=== PATIENT | female | born 1975 | race Caucasian/White ===

== ENCOUNTER 2016-10-14 06:15 | Emergency (ER) | payer BC ==
[2016-10-14 05:55] LABS: BASOPHILS 0.1 %; BASOPHILS ABSOLUTE 0.01 10/3/uL (0.0-0.16); EOSINOPHILS 0.1 %; EOSINOPHILS ABSOLUTE 0.02 10/3/uL (0.0-0.53); HEMATOCRIT 47.2 % (36.0-48.0); HEMOGLOBIN 16.7 g/dL (12.0-16.0); IMMATURE GRANULOCYTES 0.5 %; IMMATURE GRANULOCYTES ABSOLUTE 0.07 10/3/uL (0.0-0.11); LYMPHOCYTES 19.5 %; MANUAL DIFF NO %; MEAN CORPUS HGB CONC 35.4 g/dL (32.0-36.0); MEAN CORPUSCULAR VOLUME 79.2 fL (80-100); MEAN PLATELET VOLUME 10.2 fL (9.2-13.0); MONOCYTES 3.5 %; MONOCYTES ABSOLUTE 0.48 10/3/uL (0.21-1.20); NEUTROPHILS 76.3 %; NEUTROPHILS ABSOLUTE 10.55 10/3/uL (2.02-8.40); PLATELET COUNT 271 10/3/uL (150-400); RBC DISTRIBUTION WIDTH 13.3 % (12.0-16.0); RED CELL COUNT 5.96 10/6/uL (4.0-5.6); WHITE BLOOD CELLS 13.8 10/3/uL (4.5-10.5)
[2016-10-14 06:10] LABS: A/G RATIO 0.8 (0.7-1.9); ALBUMIN 3.7 G/DL (3.5-5.0); ALKALINE PHOSPHATASE 109 U/L (45-117); BUN (BLOOD UREA NITROGEN) 19 MG/DL (6-23); CALCIUM, SERUM 9.5 MG/DL (8.5-10.4); CHLORIDE, SERUM 101 MMOL/L (96-112); CO2 (CARBON DIOXIDE) 22 MMOL/L (24-34); CREATININE 0.89 MG/DL (0.55-1.02); GFR AFRICAN AMERICAN 94 ML/MIN (>=60); GFR NON AFRICAN AMERICAN 81 ML/MIN (>=60); GLOBULIN 4.8 G/DL (2.5-4.1); GLUCOSE, SERUM 401 MG/DL (60-99); POTASSIUM, SERUM 3.9 MMOL/L (3.5-5.3); SGOT(AST) 13 U/L (5-40); SGPT(ALT) 25 U/L (5-65); SODIUM, SERUM 135 MMOL/L (135-148); TOTAL BILIRUBIN 0.5 MG/DL (0-1.2); TOTAL PROTEIN 8.5 G/DL (6.0-8.5)
[2016-10-14 06:47] LABS: ACETONE NEG
[2016-10-14] MEDS ORDERED: GLUCPH PO (07:31)
[2016-10-14] MEDS ORDERED: ADVIL PO (07:31)
[2016-10-14 07:43] LABS: WBC (NOT ORDERED) (RFLEX) 0 (0-5)
[2016-10-14 07:55] LABS: ASCORBIC ACID (UR NOT ORDER) NEG (NEG); BILIRUBIN, URINE NEGATIVE (NEG); ER URINALYSIS TAT 0 Hrs 13 Mins; KETONE, URINE 20 MG/DL (NEG); LEUKOCYTE ESTERASE(NOT OR NEG (NEG); NITRITE (URINE) NEG (NEG)
== END 2016-10-14 09:46 | disposition home or self-care (01) ==
LOC: ER 06:15
PROVIDERS: Nurse Practitioner Acute Care
DX: R10.9 Unspecified abdominal pain (principal); R73.9 Hyperglycemia, unspecified; E86.0 Dehydration; F17.210 Nicotine dependence, cigarettes, uncomplicated; Z91.038 Other insect allergy status; Z79.84 Long term (current) use of oral hypoglycemic drugs; Z79.899 Other long term (current) drug therapy
CPT/HCPCS: 74176; 80053; 81001; 82009; 82962 ×2; 83690; 85025; 96374; 96375; 99284; J1170; J2405; A9270-GY

== ENCOUNTER 2016-10-15 20:59 | Inpatient (IN) | payer BC ==
--- NOTE | ~2016-10-15 | DS ---
Discharge Summary [address] [place]. [address] NAME: TATE ORELLANA : 77 STATUS : DIS IN PAT#: [id number] AGE: 41 ADM/REG DATE : 10/15/16 MR#: [id number] REPORT SERV DATE: 10/27/16 DICTATED BY: MARIA LUZ OZUNA DATE: 10/26/16 REPORT STATUS : Draft TRANSCRIBED BY: MODL DATE: 10/26/16 ADMISSION DATE: 10/15/2016 DISCHARGE DATE: 10/26/2016 DISCHARGE DIAGNOSES: 1. Partial small bowel obstruction, improving. 2. Nausea and vomiting due to partial small bowel obstruction. 3. Abdominal pain due to partial small bowel obstruction. 4. Diabetes mellitus type 2, stable. 5. Hypertension, stable. 6. Urinary tract infection, ruled out. IMAGIN. CT abdomen and pelvis, 10/15/2016, impression: Numerous fluid and dilated small bowel segments measuring up to 3.8 cm in diameter with scattered air-filled levels. Transition zone to 1 cm caliber distal ilium although transition zone is not discretely identified. Most consistent with a moderate severity partial small bowel obstruction. 2. KUB 10/16/2016, impression: Nasogastric tube passes into the stomach but the tip is not definitely seen. Probably in the antrum and dilated small bowel consistent with history of partial small bowel obstruction. 3. Small-bowel follow-through 10/17/2016 impression: Findings again compatible with small- bowel obstruction with multiple dilated small bowel loops throughout the abdomen measuring up to 4.8 cm in diameter. 4. KUB 10/19/2016, impression: Findings compatible with small-bowel obstruction. 5. KUB on 10/21/2016, impression: Mild dilation of small bowel, similar compared with 10/17/2016. 6. KUB 10/23/2016, impression: Zfrz-hp-cxwltyet distention of the small bowel throughout the abdomen with retained contrast in the colon. Findings appear similar to 10/21/2016. 7. KUB 10/24/2016 increasing number of distended gas filled loops of small intestines. There is still gas in the colon. Gas pattern is worse compared to prior study. 8. KUB 10/25/2016, impression: Persistent proximal small bowel distention with decrease in volume of gas in the abdomen. 9. Abdominal x-ray on 10/26/2016, impression: Persistent ileus with less prominent small bowel distention. CONSULTATION: GI, Stephane Abad on 10/22/2016. COURSE AT HOSPITAL STAY: Please refer to history and physical dictated by Dr. Harvey on 10/16/2016 as well as interim note. This patient is a 41-year-old female, who presented to [facility]'s Emergency Room with complaints of abdominal pain along with nausea and vomiting. The patient's imaging was obtained, and the patient was admitted to the hospital. 1. Partial small bowel obstruction. As noted above per imaging, a moderate to severe small-bowel obstruction was noted. The patient was initially n.p.o. NG tube was Discharge Summary [address] [address] NAME: TATE ORELLANA : 77 STATUS : DIS IN PAT#: [id number] AGE: 41 ADM/REG DATE : 10/15/16 MR#: [id number] REPORT SERV DATE: 10/27/16 DICTATED BY: MARIA LUZ OZUNA DATE: 10/26/16 REPORT STATUS : Draft TRANSCRIBED BY: NIKHIL DATE: 10/26/16 placed. The patient was provided pain medication due to abdominal pain/cramping. Bowel sounds were noted and decreased. The patient continued to have nausea and vomiting. NG tube was eventually discontinued. The patient was placed on a clear liquid diet, which she tolerated. Bowel regimen was initiated, MiraLAX and Dulcolax suppositories. The patient has been able to have bowel elimination. GI was consulted to assess the patient. Per their recommendation, clear liquid diet was continued, increased ambulation, also Reglan was added to the patient's regimen. The patient has been able to tolerate a regular diet. No nausea and vomiting in over 48 hours. The patient has been able to ambulate without difficulty. Continued to have loose watery bowel movements but imaging does show that resolution of obstruction at this time. The patient has been advised to continue stool softeners and will follow up with a primary care doctor in 24 hours. 2. Nausea and vomiting due to partial small bowel obstruction. The patient has had complaints of nausea and vomiting upon admission, and this has resolved. The patient has had no nausea vomiting in over 72 hours. The patient was placed on a clear liquid diet but has been eating regular food from home and has been able to tolerate it. 3. Abdominal pain due to partial small bowel obstruction. The patient had initially abdominal pain and tenderness. This has resolved in the past 72 hours. No pain prescription will be provided upon discharge. 4. Diabetes mellitus type 2. The patient's blood sugar has remained stable. At this time, it is 142. She will continue home medication upon discharge. 5. Hypertension. The patient's blood pressure was noted up on admission. Lisinopril has been added, prescription for 30 days have been provided and again patient will follow up with primary care physician in 24 hours. 6. Urinary tract infection ruled out. Initial labs indicated a possible urinary tract infection. This has been ruled out. Antibiotics were stopped. DISCHARGE MEDICATIONS: 1. Dulcolax 10 mg p.o. twice daily. 2. Lisinopril 10 mg one p.o. daily. 3. Reglan 10 mg one p.o. with meals and at bedtime. 4. MiraLAX powder one pack p.o. twice daily. 5. Metformin 500 mg one p.o. twice daily. 6. Advil 200 mg, 1000 mg p.o. twice daily. 7. Hydrocodone 7.5/325 one p.o. every six hours. The patient is being discharged home in hemodynamically stable condition. Primary care physician has been arranged per machine adjuster leader case trim for patient. A prescription for lisinopril has been provided for the patient for 30 days. The patient did state understanding and agreed with the treatment plan. Discharge took greater than 30 minutes. DICTATED BY: MICHAEL Burns/NIKHIL Discharge Summary [address] [address] NAME: TATE ORELLANA : 77 STATUS : DIS IN [facility]#: [id number] AGE: 41 ADM/REG DATE : 10/15/16 MR#: [id number] REPORT SERV DATE: 10/27/16 DICTATED BY: MARIA LUZ OZUNA DATE: 10/26/16 REPORT STATUS : Draft TRANSCRIBED BY: NIKHIL DATE: 10/26/16 Maria Luz Ozuna NP / [id number] CC: Bebeto Hsu M.D.
--- NOTE | ~2016-10-15 | CN ---
Consultation Report [facility] [address] [place]. [address] NAME: TATE ORELLANA : 77 STATUS : ADM IN PAT#: [id number] AGE: 41 ADM/REG DATE : 10/15/16 MR#: [id number] REPORT SERV DATE: 10/22/16 DICTATED BY: JANES CRUZ DATE: 10/22/16 REPORT STATUS : Draft TRANSCRIBED BY: MODL DATE: 10/22/16 GI CONSULTATION DATE OF CONSULTATION: 10/22/2016 REASON FOR CONSULTATION: Evaluation and management of partial small bowel obstruction. HISTORY OF PRESENT ILLNESS: Ms. Orellana is a 41-year-old female patient, who was admitted on 10/15/2016 secondary to a chief complaint of abdominal pain, nausea, and vomiting. She states that she had a symptom onset of abdominal pain two days prior to her admission. She was actually seen in the [facility] Emergency Room on 10/14/2016 and was treated for urinary tract infection. CT did show evidence of dilated small bowel at that point in time. She states that she was told that it was secondary to her uncontrolled diabetes from her urinary tract infection and was sent home. Her abdominal pain increased resulting in nausea, vomiting, and distention, which prompted her to come back to the [facility] Emergency Room. She underwent another CAT scan on 10/15/2016, this one was with contrast, which showed numerous fluid dilated small bowel segments measuring up to 3.8 cm in diameter with scattered air-fluid levels, transition zone was normal with 1 cm caliber distal ileum, although transition zone was not discretely identified, most consistent with moderate severity partial small-bowel obstruction. She has since admission undergone multiple KUB. She had a small bowel followthrough on 10/17/2016 showing a partial small bowel obstruction with dilated small bowel loops throughout the abdomen measuring 4.8 cm in diameter with delayed transit of Gastrografin to the colon with the first Gastrografin has been seen in the ascending colon at 13 hours. KUB dated 10/21 showed mild dilation of small bowel similar compared with 10/17/2016 with residual contrast being present within the colon. The patient states that her abdominal pain had not improved at all. She states she was able to eat a few bites of a chicken nugget today, which has stayed down with an increase in her abdominal cramping. She tells me she has not passed flatus. She has not passed any stool in multiple days despite Reglan and despite Dulcolax suppositories. She has never seen a GI physician nor had an EGD or colonoscopy. She states that she has had two surgeries for lysis of adhesions. She has had appendix surgery and she has had surgery for an ovarian cyst. PAST MEDICAL HISTORY: Positive for ovarian cyst, type 2 diabetes, obesity, and tobacco abuse, asthma, and bone cancer 12 years ago. PAST SURGICAL HISTORY: Appendectomy, ovarian cyst surgery, and lysis of adhesions. FAMILY HISTORY: Noncontributory from a GI standpoint. ALLERGIES: LISTED TO WASP VENOM AND ZOFRAN HOME MEDICATIONS: Advil and Glucophage. Consultation Report [address] [place]. [address] NAME: TATE ORELLANA : 77 STATUS : ADM IN [facility]#: [id number] AGE: 41 ADM/REG DATE : 10/15/16 MR#: [id number] REPORT SERV DATE: 10/22/16 DICTATED BY: JANES CRUZ DATE: 10/22/16 REPORT STATUS : Draft TRANSCRIBED BY: NIKHIL DATE: 10/22/16 REVIEW OF SYSTEMS: A 10-point review of systems has been obtained with pertinent positives being addressed in the history of present illness. PHYSICAL EXAMINATION: VITAL SIGNS: Temperature is 98.4, pulse 111, respirations 17, and blood pressure 129/77. NEUROLOGIC: Reveals an alert, female, resting in bed. No focal deficits. GENERAL: Cooperative, in no apparent distress. She is awake, alert, and oriented x3. HEAD, EARS, EYES, NOSE, AND THROAT: Anicteric. Pupils are equal, round, and reactive to light and accommodation. Normocephalic and atraumatic. NECK: No JVD. No palpable nodes. LUNGS: Decreased and coarse with normal respiratory effort exhibited. CARDIOVASCULAR SYSTEM: Tachycardic, but regular rate and rhythm. ABDOMEN: Distended with tympanic bowel sounds throughout, mildly tender to palpation diffusely. EXTREMITIES: No edema. Normal distal pulses. SKIN: Warm, dry, and intact. PERTINENT LABORATORY DATA: Sodium 139, potassium 3.2, BUN is 14, creatinine 0.56. White count 9.1, hemoglobin 13.4, hematocrit 39.7, platelet count 176. Albumin 3.3. Normal liver function testing. ASSESSMENT/PLAN: 1. Partial small bowel obstruction. 2. Abdominal pain, nausea, and vomiting secondary to #1. 3. Type 2 diabetes, poorly controlled. 4. Urinary tract infection. 5. History of tobacco abuse. 6. History of hypertension. PLAN: 1. We will decrease her diet to clear liquid diet. Insert NG tube if uncontrolled nausea and vomiting. 2. Star. 3. Discontinue her Reglan. 4. Start IV azithromycin. 5. Limit narcotics. 6. Imaging of the abdomen. 7. Question of stenosis. Surgical consultation at some point in time. We will follow. SERGIO/NIKHIL [facility] Consultation Report [address] [place]. [address] NAME: TATE ORELLANA : 77 STATUS : ADM IN PAT#: [id number] AGE: 41 ADM/REG DATE : 10/15/16 MR#: [id number] REPORT SERV DATE: 10/22/16 DICTATED BY: JANES CRUZ DATE: 10/22/16 REPORT STATUS : Draft TRANSCRIBED BY: NIKHIL DATE: 10/22/16 XUAN Abad / [id number] CC: Bebeto Hsu M.D. NO JIGAR
--- NOTE | ~2016-10-15 | DS ---
Discharge Summary [facility] [address] [place]. [address] NAME: TATE ORELLANA : 77 STATUS : ADM IN [facility]#: [id number] AGE: 41 ADM/REG DATE : 10/15/16 MR#: [id number] REPORT SERV DATE: 10/20/16 DICTATED BY: MARIA LUZ OZUNA DATE: 10/20/16 REPORT STATUS : Draft TRANSCRIBED BY: MODL DATE: 10/20/16 ADMISSION DATE: 10/15/2016 DISCHARGE DATE: 10/20/2016 DISCHARGE DIAGNOSES: 1. Ppvbriyf-xc-zxepsy partial small bowel obstruction, improving. 2. Abdominal pain due to oqkwbhot-zc-gzxeqy small bowel obstruction. 3. Nausea and vomiting, resolved. 4. Diabetes mellitus type 2. Blood sugar 137, stable. 5. Urinary tract infection ruled out. 6. Hypertension, stable. IMAGIN. CT abdomen and pelvis on 10/15/2016, impression numerous fluid and dilated small bowel segments measuring up to 3.8 cm diameter with scattered air-fluid levels. Transition zone to normal 1 cm caliber distal ileum, although transition zone is not discretely identified. 2. KUB on 10/16/2016, impression nasogastric tube passes into the stomach but the tip is not definitely seen, probable in the antrum. Dilated small bowel consistent with history of partial small bowel obstruction. 3. Small bowel follow through 10/17/2016, impression findings again compatible with partial small bowel obstruction with multiple dilated small bowel loops throughout the abdomen measuring up to 4.8 cm in diameter. 4. KUB on 10/19/2016, impression findings compatible with small bowel obstruction. LABORATORY DATA: WBC 7.8, hemoglobin 13.4, hematocrit 40.4, platelet count 170. Sodium is 139, potassium is 3.1, chloride 107, CO2 is 26, BUN is 12, creatinine 0.48, glucose is 124, calcium is 8.4, magnesium 1.8, and phosphorus is 3.3. COURSE AT HOSPITAL STAY: Please refer to history and physical dictated by Dr. Harvey on 10/15/2016, for complete admission details as well as interim note by Fredi Gibson NP. This patient is a 41-year-old female, who presented to [facility] emergency room with complaints of abdominal pain. Imaging was obtained, which was noted above. The patient was admitted for partial small bowel obstruction. The patient was admitted to the hospital. Initially, n.p.o. NG tube was placed to low intermittent suction. The patient was able to have a bowel movement on 10/18/2016 and 10/19/2016, and NG tube was pulled and the patient has been able to tolerate a regular diet. The patient is being continued on Reglan and this will be continued for additional 14 days. The patient will follow up with her primary care at that time. Initially upon admission, the patient may have a urinary tract infection. Antibiotics were initiated. This was discontinued. UA was ruled out. The patient's blood sugar and hypertension have remained stable. The patient does deny nausea and vomiting at this time. She does have complaints of occasional abdominal pain. She will be provided a prescription for hydrocodone upon Discharge Summary [address] [address] NAME: TATE ORELLANA : 77 STATUS : ADM IN [facility]#: [id number] AGE: 41 ADM/REG DATE : 10/15/16 MR#: [id number] REPORT SERV DATE: 10/20/16 DICTATED BY: MARIA LUZ OZUNA DATE: 10/20/16 REPORT STATUS : Draft TRANSCRIBED BY: NIKHIL DATE: 10/20/16 discharge. DISCHARGE MEDICATIONS: 1. Glucophage 500 mg one p.o. twice daily. 2. Ibuprofen 200 mg, 1000 mg p.o. twice a day p.r.n. for pain. 3. Hydrocodone 7.5/325 one p.o. every six hours p.r.n. for pain. 4. Reglan 10 mg one with meals and at bedtime. The patient is being discharged home in hemodynamically stable condition. Will follow up with her primary care in five to seven days. The patient is in agreement with the treatment plan. This discharge took less than 30 minutes. DICTATED BY: MICHAEL Burns/NIKHIL Maria Luz Ozuna NP / [id number] CC: Bebeto Hsu M.D.
--- NOTE | ~2016-10-15 | IDS ---
Interim Discharge Summary [facility] [address] [place]. [address] NAME: TATE ORELLANA : 77 STATUS : ADM IN [facility]#: [id number] AGE: 41 ADM/REG DATE : 10/15/16 MR#: [id number] REPORT SERV DATE: 10/19/16 DICTATED BY: DATE: REPORT STATUS : Draft TRANSCRIBED BY: MODL DATE: 10/19/16 ADMISSION DATE: 10/15/2016 DISCHARGE DATE: DISCHARGE DIAGNOSES: 1. Moderate to severe partial small bowel obstruction. 2. Abdominal pain due to #1. 3. Nausea and vomiting. 4. Diabetes mellitus type 2. 5. Urinary tract infection. 6. Hypertension. CONSULTATIONS: None. IMAGING: Includes CT of the abdomen and pelvis with contrast which demonstrated moderate severity small bowel obstruction, also a stable moderate to large 3.9 x 5.2 cm left ovarian cyst. Gastrografin small bowel follow-through showed findings compatible with partial small bowel obstruction. There was delayed transit of Gastrografin to the colon. Also multiple KUBs, the last being 10/18/2016, which demonstrated findings compatible with a partial small bowel obstruction. For full H and P, please refer to Dr. López Harvey's dictation on 10/15/2016. HOSPITAL COURSE: The patient was admitted with IV pain control with Dilaudid and nausea control with Phenergan and Compazine. She is allergic to Zofran. She subsequently had an NG tube placed to low intermittent suction. After the Gastrografin small-bowel follow- through, the patient did have a moderate size bowel movement, this was on 10/17/2016. I repeated her KUB on 10/18/2016, which as mentioned above still demonstrated partial small bowel obstruction; however, her symptoms had improved. She was still complaining of some nausea and some pain; however, her abdomen was soft. She had some decreased bowel sounds but they were present and she still was having some nausea without vomiting. I discontinued her NG tube and advanced her diet. I placed the patient on MiraLAX b.i.d. as well as Dulcolax suppositories b.i.d. in hopes of getting the remaining partial small bowel obstruction removed. If this is successful she should be able to be discharged in 24-48 hours. She does have diabetes mellitus type 2. I kept her on a sliding scale. She normally is on metformin at home which I added back today. She also had a urinary tract infection upon admission, she was placed on Rocephin IV which I continued, she is currently on day 4 now. She also has a history of hypertension and she has been hypertensive while she is here in the hospital. Today I added back her home lisinopril and also I added hydralazine p.r.n. CLR/MODL [facility] [facility] Interim Discharge Summary [address] [address] NAME: TATE ORELLANA : 77 STATUS : ADM IN PAT#: [id number] AGE: 41 ADM/REG DATE : 10/15/16 MR#: [id number] REPORT SERV DATE: 10/19/16 DICTATED BY: DATE: REPORT STATUS : Draft TRANSCRIBED BY: MODL DATE: 10/19/16 Dylan Gibson NP / [id number] CC: MD Bebeto Gonzalez M.D. Hany A. Naggar, MD
--- NOTE | ~2016-10-15 | HP ---
History And Physical [facility] [address] [place]. [address] NAME: TATE ORELLANA : 77 STATUS : ADM Ciera PAT#: [id number] AGE: 41 ADM/REG DATE : 10/15/16 MR#: [id number] REPORT SERV DATE: 10/16/16 DICTATED BY: LÓPEZ KING DATE: 10/16/16 REPORT STATUS : Draft TRANSCRIBED BY: MODL DATE: 10/16/16 DATE OF ADMISSION: 10/15/2016 CHIEF COMPLAINT: Severe abdominal pain, nausea, and vomiting. HISTORY OF PRESENT ILLNESS: This is a 41-year-old female with a history of diabetes mellitus, who presents to the emergency room at [facility] with the above mentioned complaint. History is obtained from the patient, and reviewing data available on the [employer] system. According to the patient, she had been in usual state of health until about four to five days ago when she started having severe lower abdominal pain which was cramping in nature. This was soon followed by nausea and vomiting, and she was unable to pass any stools. She has had one such episode several years ago according to her when she was told her bowels had just come to sleep. In the last 24 hours or so, she started having intractable nausea with vomiting, and finally decided to come to the emergency room because the pain was unbearable. In the emergency room, CT scan of the abdomen and pelvis showed moderate severity, partial small bowel obstruction, and initial workup revealed hyperglycemia from her diabetes. She also appeared to have urinary tract infection. Hospitalist Service is asked to admit her for further evaluation and treatment. At the time of my evaluation, she denied any chest pain, palpitations, or orthopnea. She had no cough, hemoptysis, night sweats, or weight loss. She has not had any falls or loss of consciousness. No recent fevers or chills. She did have nausea with vomiting without any diarrhea. In fact, she has not had any bowel movement. No history of hematemesis, hematochezia, or hematuria. No other history of recent travel or exposures other than those mentioned above. PAST MEDICAL HISTORY: Significant for history of diabetes mellitus, which is poorly controlled. SOCIAL HISTORY: She has about 30- to 53-ddfy-bhmi year history of smoking, continues to do so. Denies alcohol use or recreational drug use. 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 FAMILY HISTORY: Noncontributory. MEDICATIONS: Medications at home were reviewed by me in the chart today and reordered by me. REVIEW OF SYSTEMS: As in history of present illness. All other systems were reviewed in detail and are quite unremarkable. PHYSICAL EXAMINATION: GENERAL: This is a pleasant 41-year old, not in any acute distress. She is alert, awake, oriented to time, place, and person. History And Physical [address] [id number] NAME: TATE ORELLANA : 77 STATUS : ADM Ciera PAT#: [id number] AGE: 41 ADM/REG DATE : 10/15/16 MR#: [id number] REPORT SERV DATE: 10/16/16 DICTATED BY: LÓPEZ KING DATE: 10/16/16 REPORT STATUS : Draft TRANSCRIBED BY: NIKHIL DATE: 10/16/16 HEENT: Her head is atraumatic, normocephalic. Pupils are equal, reacting to light and accommodating. External ocular muscles are intact. Membranes are moist and pink. Sclerae are nonicteric. NECK: Supple with no jugular venous distention, lymphadenopathy, or thyromegaly. LUNGS: Clear to auscultation with no wheezes, rubs, or crackles. HEART: Heart sounds were regular with no murmurs, rubs, or gallops. ABDOMEN: Soft. There is tenderness to palpation in the entire lower abdomen. There is no guarding or rigidity. There is no rebound tenderness. Bowel sounds are present. EXTREMITIES: Showed no cyanosis, clubbing, or edema. NEUROLOGIC: Grossly intact. No focal sensory or motor deficits. Higher functions appeared intact. Gait was not examined. VITAL SIGNS: Her vital signs today showed a temperature of 97.5, pulse 90, respirations 24 a minute, blood pressure was 146/94, oxygen saturations were 98%, breathing 2 L of oxygen via nasal cannula. LABORATORY DATA: Reviewed on the [employer] system showed a normal CMP with a blood glucose of 312, lipase was 89 today. Alkaline phosphatase, ALT, and AST were within normal limits. CBC showed a normal white blood cell count of 7700, hemoglobin was 16.3 with a hematocrit of 46.3, and platelet count was 225,000. Urinalysis showed large blood, leukocyte esterase was negative. Nitrite was negative with 32 RBCs and 12 WBCs. There were rare bacteria. CT scan of the abdomen and pelvis done in the emergency room was reviewed and interpreted by me. Official radiology report was also reviewed. There is moderate severity partial small bowel obstruction. Please see report for the details. IMPRESSION: 1. Abdominal pain. 2. Partial small bowel obstruction. 3. Intractable nausea and vomiting. 4. Diabetes mellitus with hyperglycemia. 5. Urinary tract infection. PLAN: We will admit Mrs. Orellana to the Hospitalist Service with defensive monitoring for a 24- hour observation. We will keep her n.p.o. for now. Start her on Zofran and Phenergan on an as-needed basis for symptoms of nausea and vomiting. We will also establish pain control at this time, start her on IV fluids for volume resuscitation. We will go ahead and consult Gastroenterology Service to see her in the morning as well. We will start her on Reglan intravenously as well. For her hyperglycemia, we will start her on NovoLog insulin per sliding scale on a four-hourly basis because she will be n.p.o. We will also bolus her with IV fluids and continue maintenance therapy as well. We will check cultures, start her on empiric IV antibiotics for urinary tract infection, and also place her on unfractionated heparin for DVT prophylaxis while here. Her gastroparesis is probably secondary to her poorly controlled diabetes mellitus. I have discussed this with the patient, and I encouraged her to control her diabetes more aggressively. She and her boyfriend who is at bedside, have agreed to do so. History And Physical [address] [address] NAME: TATE ORELLANA : 77 STATUS : ADM Ciera PAT#: [id number] AGE: 41 ADM/REG DATE : 10/15/16 MR#: [id number] REPORT SERV DATE: 10/16/16 DICTATED BY: LÓPEZ KING DATE: 10/16/16 REPORT STATUS : Draft TRANSCRIBED BY: NIKHIL DATE: 10/16/16 Hospitalist Service will be following her during her stay here. MR/NIKHIL López King M.D. / [id number] CC: Vasile Nails MD
[~2016-10-15 20:59] MED LIST: ADVIL PO; GLUCPH PO
[2016-10-15 22:43] LABS: BASOPHILS 0.1 %; BASOPHILS ABSOLUTE 0.01 10/3/uL (0.0-0.16); EOSINOPHILS 0.4 %; EOSINOPHILS ABSOLUTE 0.03 10/3/uL (0.0-0.53); HEMATOCRIT 46.3 % (36.0-48.0); HEMOGLOBIN 16.3 g/dL (12.0-16.0); IMMATURE GRANULOCYTES 0.3 %; IMMATURE GRANULOCYTES ABSOLUTE 0.02 10/3/uL (0.0-0.11); LYMPHOCYTES 34.4 %; LYMPHOCYTES ABSOLUTE 2.65 10/3/uL (0.67-4.30); MEAN CORPUS HGB CONC 35.2 g/dL (32.0-36.0); MEAN CORPUSCULAR HEMOGLOB 28.3 pg (26.0-34.0); MEAN CORPUSCULAR VOLUME 80.4 fL (80-100); MEAN PLATELET VOLUME 10.4 fL (9.2-13.0); NEUTROPHILS 51.8 %; PLATELET COUNT 225 10/3/uL (150-400); RBC DISTRIBUTION WIDTH 13.6 % (12.0-16.0); RED CELL COUNT 5.76 10/6/uL (4.0-5.6)
[2016-10-15 22:45] LABS: ER CBC TAT 0 Hrs 07 Mins; MANUAL DIFF NO %; WHITE BLOOD CELLS 7.7 10/3/uL (4.5-10.5)
[2016-10-15 22:55] LABS: ASCORBIC ACID (UR NOT ORDER) NEG (NEG); BILIRUBIN, URINE NEGATIVE (NEG); KETONE, URINE 20 MG/DL (NEG); LEUKOCYTE ESTERASE(NOT OR NEG (NEG); NITRITE (URINE) NEG (NEG); WBC (NOT ORDERED) (RFLEX) 12 (0-5)
[2016-10-15 23:00] LABS: A/G RATIO 0.7 (0.7-1.9); ALBUMIN 3.3 G/DL (3.5-5.0); ALKALINE PHOSPHATASE 78 U/L (45-117); BUN (BLOOD UREA NITROGEN) 27 MG/DL (6-23); CHLORIDE, SERUM 101 MMOL/L (96-112); CO2 (CARBON DIOXIDE) 28 MMOL/L (24-34); CREATININE 0.85 MG/DL (0.55-1.02); GFR AFRICAN AMERICAN 99 ML/MIN (>=60); GFR NON AFRICAN AMERICAN 86 ML/MIN (>=60); GLOBULIN 4.8 G/DL (2.5-4.1); GLUCOSE, SERUM 312 MG/DL (60-99); POTASSIUM, SERUM 3.8 MMOL/L (3.5-5.3); SGOT(AST) 10 U/L (5-40); SGPT(ALT) 18 U/L (5-65); SODIUM, SERUM 138 MMOL/L (135-148); TOTAL BILIRUBIN 0.5 MG/DL (0-1.2); TOTAL PROTEIN 8.1 G/DL (6.0-8.5)
[2016-10-15 23:40] LABS: ACETONE NEG
[2016-10-16 07:13] LABS: BASOPHILS 0.1 %; BASOPHILS ABSOLUTE 0.01 10/3/uL (0.0-0.16); EOSINOPHILS ABSOLUTE 0.08 10/3/uL (0.0-0.53); HEMOGLOBIN 14.8 g/dL (12.0-16.0); IMMATURE GRANULOCYTES 0.1 %; IMMATURE GRANULOCYTES ABSOLUTE 0.01 10/3/uL (0.0-0.11); LYMPHOCYTES 41.3 %; LYMPHOCYTES ABSOLUTE 3.21 10/3/uL (0.67-4.30); MANUAL DIFF NO %; MEAN CORPUS HGB CONC 33.6 g/dL (32.0-36.0); MEAN CORPUSCULAR HEMOGLOB 27.2 pg (26.0-34.0); MEAN CORPUSCULAR VOLUME 80.7 fL (80-100); MEAN PLATELET VOLUME 10.4 fL (9.2-13.0); MONOCYTES 13.1 %; MONOCYTES ABSOLUTE 1.02 10/3/uL (0.21-1.20); NEUTROPHILS 44.4 %; NEUTROPHILS ABSOLUTE 3.45 10/3/uL (2.02-8.40); PLATELET COUNT 212 10/3/uL (150-400); RBC DISTRIBUTION WIDTH 13.8 % (12.0-16.0); RED CELL COUNT 5.45 10/6/uL (4.0-5.6); WHITE BLOOD CELLS 7.8 10/3/uL (4.5-10.5)
[2016-10-16 07:26] LABS: CALCIUM, SERUM 8.4 MG/DL (8.5-10.4); CHLORIDE, SERUM 100 MMOL/L (96-112); GLUCOSE, SERUM 265 MG/DL (60-99); POTASSIUM, SERUM 3.5 MMOL/L (3.5-5.3); SODIUM, SERUM 138 MMOL/L (135-148)
[2016-10-16 07:27] LABS: BUN (BLOOD UREA NITROGEN) 34 MG/DL (6-23)
[2016-10-16 07:29] LABS: CO2 (CARBON DIOXIDE) 29 MMOL/L (24-34); CREATININE 0.75 MG/DL (0.55-1.02); GFR AFRICAN AMERICAN 116 ML/MIN (>=60); GFR NON AFRICAN AMERICAN 100 ML/MIN (>=60); PHOSPHORUS, SERUM 4.3 MG/DL (2.5-4.5)
[2016-10-17 05:37] LABS: BASOPHILS 0.3 %; BASOPHILS ABSOLUTE 0.02 10/3/uL (0.0-0.16); EOSINOPHILS 1.8 %; EOSINOPHILS ABSOLUTE 0.12 10/3/uL (0.0-0.53); HEMATOCRIT 42.5 % (36.0-48.0); IMMATURE GRANULOCYTES 0.2 %; IMMATURE GRANULOCYTES ABSOLUTE 0.01 10/3/uL (0.0-0.11); LYMPHOCYTES 52.7 %; LYMPHOCYTES ABSOLUTE 3.47 10/3/uL (0.67-4.30); MEAN CORPUS HGB CONC 32.9 g/dL (32.0-36.0); MEAN PLATELET VOLUME 10.3 fL (9.2-13.0); MONOCYTES 10.2 %; MONOCYTES ABSOLUTE 0.67 10/3/uL (0.21-1.20); NEUTROPHILS 34.8 %; PLATELET COUNT 201 10/3/uL (150-400); RBC DISTRIBUTION WIDTH 13.7 % (12.0-16.0); RED CELL COUNT 5.18 10/6/uL (4.0-5.6); WHITE BLOOD CELLS 6.6 10/3/uL (4.5-10.5)
[2016-10-17 05:39] LABS: MANUAL DIFF NO %
[2016-10-17 05:53] LABS: CHLORIDE, SERUM 108 MMOL/L (96-112); CO2 (CARBON DIOXIDE) 26 MMOL/L (24-34); CREATININE 0.55 MG/DL (0.55-1.02); GFR AFRICAN AMERICAN 136 ML/MIN (>=60); GFR NON AFRICAN AMERICAN 117 ML/MIN (>=60); POTASSIUM, SERUM 3.5 MMOL/L (3.5-5.3); SODIUM, SERUM 140 MMOL/L (135-148)
[2016-10-17 05:56] LABS: BUN (BLOOD UREA NITROGEN) 25 MG/DL (6-23); GLUCOSE, SERUM 184 MG/DL (60-99)
[2016-10-18 05:22] LABS: BASOPHILS 0.2 %; BASOPHILS ABSOLUTE 0.01 10/3/uL (0.0-0.16); EOSINOPHILS 0.7 %; EOSINOPHILS ABSOLUTE 0.04 10/3/uL (0.0-0.53); HEMATOCRIT 41.4 % (36.0-48.0); HEMOGLOBIN 13.5 g/dL (12.0-16.0); IMMATURE GRANULOCYTES 0.3 %; IMMATURE GRANULOCYTES ABSOLUTE 0.02 10/3/uL (0.0-0.11); LYMPHOCYTES 45.1 %; LYMPHOCYTES ABSOLUTE 2.67 10/3/uL (0.67-4.30); MEAN CORPUS HGB CONC 32.6 g/dL (32.0-36.0); MEAN CORPUSCULAR VOLUME 82.8 fL (80-100); MEAN PLATELET VOLUME 10.3 fL (9.2-13.0); MONOCYTES 11.3 %; MONOCYTES ABSOLUTE 0.67 10/3/uL (0.21-1.20); NEUTROPHILS 42.4 %; NEUTROPHILS ABSOLUTE 2.51 10/3/uL (2.02-8.40); PLATELET COUNT 185 10/3/uL (150-400); RBC DISTRIBUTION WIDTH 13.8 % (12.0-16.0); WHITE BLOOD CELLS 5.9 10/3/uL (4.5-10.5)
[2016-10-18 05:23] LABS: MANUAL DIFF NO %
[2016-10-18 05:41] LABS: BUN (BLOOD UREA NITROGEN) 26 MG/DL (6-23); CALCIUM, SERUM 8.6 MG/DL (8.5-10.4); CHLORIDE, SERUM 108 MMOL/L (96-112); CO2 (CARBON DIOXIDE) 26 MMOL/L (24-34); CREATININE 0.58 MG/DL (0.55-1.02); GFR AFRICAN AMERICAN 134 ML/MIN (>=60); GFR NON AFRICAN AMERICAN 115 ML/MIN (>=60); GLUCOSE, SERUM 180 MG/DL (60-99); PHOSPHORUS, SERUM 3.5 MG/DL (2.5-4.5); POTASSIUM, SERUM 3.3 MMOL/L (3.5-5.3); SODIUM, SERUM 143 MMOL/L (135-148)
[2016-10-19 05:11] LABS: CALCIUM, SERUM 8.2 MG/DL (8.5-10.4); CHLORIDE, SERUM 109 MMOL/L (96-112); CO2 (CARBON DIOXIDE) 23 MMOL/L (24-34); CREATININE 0.47 MG/DL (0.55-1.02); GFR AFRICAN AMERICAN 143 ML/MIN (>=60); GFR NON AFRICAN AMERICAN 124 ML/MIN (>=60); GLUCOSE, SERUM 160 MG/DL (60-99); PHOSPHORUS, SERUM 3.6 MG/DL (2.5-4.5); SODIUM, SERUM 143 MMOL/L (135-148)
[2016-10-19 05:24] LABS: BASOPHILS 0.3 %; BASOPHILS ABSOLUTE 0.02 10/3/uL (0.0-0.16); EOSINOPHILS 0.5 %; EOSINOPHILS ABSOLUTE 0.03 10/3/uL (0.0-0.53); HEMATOCRIT 39.9 % (36.0-48.0); HEMOGLOBIN 13.2 g/dL (12.0-16.0); IMMATURE GRANULOCYTES 0.6 %; IMMATURE GRANULOCYTES ABSOLUTE 0.04 10/3/uL (0.0-0.11); LYMPHOCYTES ABSOLUTE 2.68 10/3/uL (0.67-4.30); MEAN CORPUS HGB CONC 33.1 g/dL (32.0-36.0); MEAN CORPUSCULAR HEMOGLOB 27.1 pg (26.0-34.0); MEAN CORPUSCULAR VOLUME 81.9 fL (80-100); MEAN PLATELET VOLUME 10.6 fL (9.2-13.0); MONOCYTES 10.6 %; MONOCYTES ABSOLUTE 0.69 10/3/uL (0.21-1.20); NEUTROPHILS ABSOLUTE 3.08 10/3/uL (2.02-8.40); PLATELET COUNT 151 10/3/uL (150-400); RBC DISTRIBUTION WIDTH 13.9 % (12.0-16.0); RED CELL COUNT 4.87 10/6/uL (4.0-5.6); WHITE BLOOD CELLS 6.5 10/3/uL (4.5-10.5)
[2016-10-19 05:25] LABS: BUN (BLOOD UREA NITROGEN) 18 MG/DL (6-23); POTASSIUM, SERUM 3.5 MMOL/L (3.5-5.3)
[2016-10-19 05:42] LABS: MANUAL DIFF NO %
[2016-10-20 05:08] LABS: BASOPHILS 0.4 %; BASOPHILS ABSOLUTE 0.03 10/3/uL (0.0-0.16); EOSINOPHILS 1.4 %; EOSINOPHILS ABSOLUTE 0.11 10/3/uL (0.0-0.53); HEMATOCRIT 40.4 % (36.0-48.0); HEMOGLOBIN 13.4 g/dL (12.0-16.0); IMMATURE GRANULOCYTES 0.6 %; IMMATURE GRANULOCYTES ABSOLUTE 0.05 10/3/uL (0.0-0.11); LYMPHOCYTES 44.1 %; LYMPHOCYTES ABSOLUTE 3.46 10/3/uL (0.67-4.30); MEAN CORPUS HGB CONC 33.2 g/dL (32.0-36.0); MEAN CORPUSCULAR HEMOGLOB 27.3 pg (26.0-34.0); MEAN CORPUSCULAR VOLUME 82.4 fL (80-100); MEAN PLATELET VOLUME 10.2 fL (9.2-13.0); MONOCYTES 8.4 %; MONOCYTES ABSOLUTE 0.66 10/3/uL (0.21-1.20); NEUTROPHILS 45.1 %; NEUTROPHILS ABSOLUTE 3.53 10/3/uL (2.02-8.40); PLATELET COUNT 170 10/3/uL (150-400); RBC DISTRIBUTION WIDTH 13.5 % (12.0-16.0); WHITE BLOOD CELLS 7.8 10/3/uL (4.5-10.5)
[2016-10-20 05:10] LABS: MANUAL DIFF NO %
[2016-10-20 05:15] LABS: CALCIUM, SERUM 8.3 MG/DL (8.5-10.4); CHLORIDE, SERUM 107 MMOL/L (96-112); CO2 (CARBON DIOXIDE) 26 MMOL/L (24-34); CREATININE 0.48 MG/DL (0.55-1.02); GFR AFRICAN AMERICAN 142 ML/MIN (>=60); GFR NON AFRICAN AMERICAN 123 ML/MIN (>=60); PHOSPHORUS, SERUM 3.3 MG/DL (2.5-4.5); POTASSIUM, SERUM 3.1 MMOL/L (3.5-5.3); SODIUM, SERUM 139 MMOL/L (135-148)
[2016-10-20 05:18] LABS: BUN (BLOOD UREA NITROGEN) 12 MG/DL (6-23); GLUCOSE, SERUM 124 MG/DL (60-99)
[2016-10-20] MEDS ORDERED: NORCO1 TA2 PO (12:09)
[2016-10-20] MEDS ORDERED: REG PO (12:09)
[2016-10-21 05:39] LABS: BASOPHILS 0.2 %; BASOPHILS ABSOLUTE 0.02 10/3/uL (0.0-0.16); EOSINOPHILS 1.1 %; HEMATOCRIT 40.7 % (36.0-48.0); HEMOGLOBIN 13.6 g/dL (12.0-16.0); IMMATURE GRANULOCYTES 0.7 %; IMMATURE GRANULOCYTES ABSOLUTE 0.06 10/3/uL (0.0-0.11); LYMPHOCYTES 34.7 %; LYMPHOCYTES ABSOLUTE 3.15 10/3/uL (0.67-4.30); MEAN CORPUS HGB CONC 33.4 g/dL (32.0-36.0); MEAN CORPUSCULAR HEMOGLOB 27.2 pg (26.0-34.0); MEAN CORPUSCULAR VOLUME 81.4 fL (80-100); MEAN PLATELET VOLUME 10.1 fL (9.2-13.0); MONOCYTES 6.9 %; MONOCYTES ABSOLUTE 0.63 10/3/uL (0.21-1.20); NEUTROPHILS 56.4 %; NEUTROPHILS ABSOLUTE 5.13 10/3/uL (2.02-8.40); PLATELET COUNT 213 10/3/uL (150-400); RBC DISTRIBUTION WIDTH 13.7 % (12.0-16.0); WHITE BLOOD CELLS 9.1 10/3/uL (4.5-10.5)
[2016-10-21 05:40] LABS: MANUAL DIFF NO %
[2016-10-21 05:56] LABS: BUN (BLOOD UREA NITROGEN) 14 MG/DL (6-23); CALCIUM, SERUM 8.8 MG/DL (8.5-10.4); CHLORIDE, SERUM 101 MMOL/L (96-112); CO2 (CARBON DIOXIDE) 26 MMOL/L (24-34); CREATININE 0.54 MG/DL (0.55-1.02); GFR AFRICAN AMERICAN 137 ML/MIN (>=60); GFR NON AFRICAN AMERICAN 118 ML/MIN (>=60); POTASSIUM, SERUM 3.1 MMOL/L (3.5-5.3); SODIUM, SERUM 139 MMOL/L (135-148)
[2016-10-21 05:57] LABS: GLUCOSE, SERUM 150 MG/DL (60-99); PHOSPHORUS, SERUM 4.3 MG/DL (2.5-4.5)
[2016-10-22 05:18] LABS: BASOPHILS 0.4 %; BASOPHILS ABSOLUTE 0.04 10/3/uL (0.0-0.16); EOSINOPHILS 1.4 %; EOSINOPHILS ABSOLUTE 0.13 10/3/uL (0.0-0.53); HEMATOCRIT 39.7 % (36.0-48.0); HEMOGLOBIN 13.4 g/dL (12.0-16.0); IMMATURE GRANULOCYTES 0.8 %; IMMATURE GRANULOCYTES ABSOLUTE 0.07 10/3/uL (0.0-0.11); LYMPHOCYTES 35.2 %; LYMPHOCYTES ABSOLUTE 3.21 10/3/uL (0.67-4.30); MEAN CORPUS HGB CONC 33.8 g/dL (32.0-36.0); MEAN CORPUSCULAR HEMOGLOB 27.7 pg (26.0-34.0); MEAN CORPUSCULAR VOLUME 82.2 fL (80-100); MEAN PLATELET VOLUME 10.3 fL (9.2-13.0); MONOCYTES ABSOLUTE 0.64 10/3/uL (0.21-1.20); NEUTROPHILS 55.2 %; NEUTROPHILS ABSOLUTE 5.03 10/3/uL (2.02-8.40); PLATELET COUNT 176 10/3/uL (150-400); RBC DISTRIBUTION WIDTH 13.8 % (12.0-16.0); RED CELL COUNT 4.83 10/6/uL (4.0-5.6); WHITE BLOOD CELLS 9.1 10/3/uL (4.5-10.5)
[2016-10-22 05:20] LABS: MANUAL DIFF NO %
[2016-10-22 05:40] LABS: BUN (BLOOD UREA NITROGEN) 14 MG/DL (6-23); CALCIUM, SERUM 8.7 MG/DL (8.5-10.4); CHLORIDE, SERUM 103 MMOL/L (96-112); CO2 (CARBON DIOXIDE) 30 MMOL/L (24-34); CREATININE 0.56 MG/DL (0.55-1.02); GFR AFRICAN AMERICAN 135 ML/MIN (>=60); GFR NON AFRICAN AMERICAN 117 ML/MIN (>=60); GLUCOSE, SERUM 145 MG/DL (60-99); POTASSIUM, SERUM 3.2 MMOL/L (3.5-5.3); SODIUM, SERUM 139 MMOL/L (135-148)
[2016-10-23 05:19] LABS: MEAN CORPUS HGB CONC 33.3 g/dL (32.0-36.0); MEAN CORPUSCULAR HEMOGLOB 27.7 pg (26.0-34.0); MEAN PLATELET VOLUME 10.5 fL (9.2-13.0); RBC DISTRIBUTION WIDTH 14.2 % (12.0-16.0); RED CELL COUNT 5.06 10/6/uL (4.0-5.6); WHITE BLOOD CELLS 12.3 10/3/uL (4.5-10.5)
[2016-10-23 05:24] LABS: BUN (BLOOD UREA NITROGEN) 15 MG/DL (6-23); CALCIUM, SERUM 9.3 MG/DL (8.5-10.4); CHLORIDE, SERUM 103 MMOL/L (96-112); CO2 (CARBON DIOXIDE) 27 MMOL/L (24-34); CREATININE 0.56 MG/DL (0.55-1.02); GFR AFRICAN AMERICAN 135 ML/MIN (>=60); GFR NON AFRICAN AMERICAN 117 ML/MIN (>=60); GLUCOSE, SERUM 120 MG/DL (60-99); POTASSIUM, SERUM 3.4 MMOL/L (3.5-5.3); SODIUM, SERUM 141 MMOL/L (135-148)
[2016-10-23 05:26] LABS: MANUAL DIFF YES %; PLATELET COUNT 235 10/3/uL (150-400)
[2016-10-23 08:23] LABS: BAND NEUTROPHILS 4 %; EOSINOPHILS 2 %; EOSINOPHILS ABSOLUTE (CALC) 0.25 10/3/uL (0.0-0.53); IMMATURE MONONUCLEAR 4 % (0); LYMPHOCYTES 33 %; LYMPHOCYTES ABSOLUTE (CALC) 4.06 10/3/uL (0.67-4.30); MONOCYTES 3 %; MONOCYTES ABSOLUTE (CALC) 0.37 10/3/uL (0.21-1.20); NEUTROPHILS ABSOLUTE (CALC) 7.13 10/3/uL (2.02-8.40); PLATELET ESTIMATE ADQ (ADEQUATE); SEGMENTED NEUTROPHIL (0) 54 %; TOTAL NUCLEATED CELLS 100
[2016-10-23 08:24] LABS: PATH REVIEW YES; RBC MORPHOLOGY NORM (NORMAL)
[2016-10-23 10:26] LABS: PATH REVIEW SEE PATHOLOGY REPORT
[2016-10-24 06:08] LABS: BASOPHILS 0.2 %; BASOPHILS ABSOLUTE 0.03 10/3/uL (0.0-0.16); EOSINOPHILS 1.3 %; EOSINOPHILS ABSOLUTE 0.19 10/3/uL (0.0-0.53); HEMATOCRIT 43.6 % (36.0-48.0); HEMOGLOBIN 14.3 g/dL (12.0-16.0); IMMATURE GRANULOCYTES 0.7 %; LYMPHOCYTES 32.9 %; LYMPHOCYTES ABSOLUTE 4.67 10/3/uL (0.67-4.30); MEAN CORPUS HGB CONC 32.8 g/dL (32.0-36.0); MEAN CORPUSCULAR HEMOGLOB 27.5 pg (26.0-34.0); MEAN CORPUSCULAR VOLUME 83.8 fL (80-100); MEAN PLATELET VOLUME 10.1 fL (9.2-13.0); MONOCYTES 7.8 %; MONOCYTES ABSOLUTE 1.11 10/3/uL (0.21-1.20); NEUTROPHILS 57.1 %; NEUTROPHILS ABSOLUTE 8.09 10/3/uL (2.02-8.40); PLATELET COUNT 229 10/3/uL (150-400); RBC DISTRIBUTION WIDTH 14.7 % (12.0-16.0); WHITE BLOOD CELLS 14.2 10/3/uL (4.5-10.5)
[2016-10-24 06:09] LABS: MANUAL DIFF NO %
[2016-10-24 06:22] LABS: BUN (BLOOD UREA NITROGEN) 15 MG/DL (6-23); CALCIUM, SERUM 9.2 MG/DL (8.5-10.4); CHLORIDE, SERUM 102 MMOL/L (96-112); CO2 (CARBON DIOXIDE) 31 MMOL/L (24-34); CREATININE 0.79 MG/DL (0.55-1.02); GFR AFRICAN AMERICAN 109 ML/MIN (>=60); GFR NON AFRICAN AMERICAN 94 ML/MIN (>=60); GLUCOSE, SERUM 117 MG/DL (60-99); PHOSPHORUS, SERUM 4.1 MG/DL (2.5-4.5); POTASSIUM, SERUM 3.7 MMOL/L (3.5-5.3); SODIUM, SERUM 141 MMOL/L (135-148)
[2016-10-25 05:44] LABS: HEMATOCRIT 40.8 % (36.0-48.0); HEMOGLOBIN 13.1 g/dL (12.0-16.0); MEAN CORPUS HGB CONC 32.1 g/dL (32.0-36.0); MEAN CORPUSCULAR HEMOGLOB 27.2 pg (26.0-34.0); MEAN CORPUSCULAR VOLUME 84.8 fL (80-100); MEAN PLATELET VOLUME 9.9 fL (9.2-13.0); PLATELET COUNT 214 10/3/uL (150-400); RBC DISTRIBUTION WIDTH 14.7 % (12.0-16.0); RED CELL COUNT 4.81 10/6/uL (4.0-5.6); WHITE BLOOD CELLS 14.2 10/3/uL (4.5-10.5)
[2016-10-25 05:45] LABS: MANUAL DIFF YES %
[2016-10-25 05:52] LABS: BUN (BLOOD UREA NITROGEN) 14 MG/DL (6-23); CALCIUM, SERUM 8.9 MG/DL (8.5-10.4); CHLORIDE, SERUM 105 MMOL/L (96-112); CO2 (CARBON DIOXIDE) 30 MMOL/L (24-34); CREATININE 0.73 MG/DL (0.55-1.02); GFR AFRICAN AMERICAN 119 ML/MIN (>=60); GFR NON AFRICAN AMERICAN 103 ML/MIN (>=60); GLUCOSE, SERUM 117 MG/DL (60-99); PHOSPHORUS, SERUM 4.7 MG/DL (2.5-4.5); POTASSIUM, SERUM 3.8 MMOL/L (3.5-5.3); SODIUM, SERUM 142 MMOL/L (135-148)
[2016-10-25 06:53] LABS: BAND NEUTROPHILS 6 %; EOSINOPHILS 3 %; EOSINOPHILS ABSOLUTE (CALC) 0.43 10/3/uL (0.0-0.53); IMMATURE GRANS ABSOLUTE (CALC) 0.14 10/3/uL (0.0-0.11); LYMPHOCYTES 37 %; LYMPHOCYTES ABSOLUTE (CALC) 5.25 10/3/uL (0.67-4.30); METAMYELOCYTES 1 %; MONOCYTES 5 %; MONOCYTES ABSOLUTE (CALC) 0.71 10/3/uL (0.21-1.20); NEUTROPHILS ABSOLUTE (CALC) 7.67 10/3/uL (2.02-8.40); PLATELET ESTIMATE ADQ (ADEQUATE); POLYCHROMASIA 1+ (2-5/OIF) (0-1/OIF); SEGMENTED NEUTROPHIL (0) 48 %; TEARDROP SHAPED RBCS OCC (0-2/OIF); TOTAL NUCLEATED CELLS 100
[2016-10-26 04:17] LABS: BASOPHILS 0.2 %; BASOPHILS ABSOLUTE 0.02 10/3/uL (0.0-0.16); EOSINOPHILS 1.9 %; HEMATOCRIT 41.2 % (36.0-48.0); HEMOGLOBIN 13.2 g/dL (12.0-16.0); IMMATURE GRANULOCYTES 0.2 %; IMMATURE GRANULOCYTES ABSOLUTE 0.02 10/3/uL (0.0-0.11); LYMPHOCYTES ABSOLUTE 3.94 10/3/uL (0.67-4.30); MEAN CORPUSCULAR HEMOGLOB 27.4 pg (26.0-34.0); MEAN CORPUSCULAR VOLUME 85.5 fL (80-100); MEAN PLATELET VOLUME 10.1 fL (9.2-13.0); MONOCYTES 6.3 %; MONOCYTES ABSOLUTE 0.65 10/3/uL (0.21-1.20); NEUTROPHILS 53.4 %; NEUTROPHILS ABSOLUTE 5.54 10/3/uL (2.02-8.40); PLATELET COUNT 217 10/3/uL (150-400); RBC DISTRIBUTION WIDTH 14.7 % (12.0-16.0); RED CELL COUNT 4.82 10/6/uL (4.0-5.6); WHITE BLOOD CELLS 10.4 10/3/uL (4.5-10.5)
[2016-10-26 04:21] LABS: MANUAL DIFF NO %
[2016-10-26 04:35] LABS: BUN (BLOOD UREA NITROGEN) 13 MG/DL (6-23); CALCIUM, SERUM 8.7 MG/DL (8.5-10.4); CHLORIDE, SERUM 104 MMOL/L (96-112); CO2 (CARBON DIOXIDE) 29 MMOL/L (24-34); CREATININE 0.76 MG/DL (0.55-1.02); GFR AFRICAN AMERICAN 114 ML/MIN (>=60); GFR NON AFRICAN AMERICAN 98 ML/MIN (>=60); GLUCOSE, SERUM 127 MG/DL (60-99); PHOSPHORUS, SERUM 4.7 MG/DL (2.5-4.5); POTASSIUM, SERUM 3.8 MMOL/L (3.5-5.3); SODIUM, SERUM 139 MMOL/L (135-148)
[2016-10-26] MEDS ORDERED: BISR PR (12:02)
[2016-10-26] MEDS ORDERED: PRIN10 PO (12:03)
[2016-10-26] MEDS ORDERED: MIRALAX POWDER1 PKT PO (12:06)
== END 2016-10-26 12:41 | disposition home or self-care (01) | DRG 390 ==
LOC: ER 20:59 → 4EA 22:00
PROVIDERS: Emergency Medicine; Internal Medicine Pulmonary Disease; Nurse Practitioner Acute Care
PROC: BD16YZZ Fluoroscopy of Upper GI and Small Bowel using Other Contrast (ICD-10-PCS; principal; 2016-10-16)
DX: K56.60 Unspecified intestinal obstruction (principal); K31.84 Gastroparesis; E11.65 Type 2 diabetes mellitus with hyperglycemia; E11.43 Type 2 diabetes mellitus with diabetic autonomic (poly)neuropathy; F17.210 Nicotine dependence, cigarettes, uncomplicated; I10 Essential (primary) hypertension; Z88.8 Allergy status to other drugs, medicaments and biological substances; Z79.84 Long term (current) use of oral hypoglycemic drugs; Z85.830 Personal history of malignant neoplasm of bone; J45.909 Unspecified asthma, uncomplicated; E87.6 Hypokalemia; E86.0 Dehydration; Z79.899 Other long term (current) drug therapy
CPT/HCPCS: 74000; 74020; 74176; 74177; 74250; 80048; 80053; 81001; 82009; 82962; 83690; 83735; 84100; 84443; 84703; 85025; 87040; 96374; 96375; 99284; A9270-GY; J0360; J0456; J0780; J1170; J1885; J2405; J2550; J2765; Q9967